=== PATIENT | male | born 1950 | race Hispanic/Latino ===

== ENCOUNTER 2024-02-14 18:26 | Emergency (ER) | payer MEDICARE, SELFPAY ==
[2024-02-14 18:28] VITALS: BP 141/80
[2024-02-14 19:00] VITALS: BP 130/82
[2024-02-14 19:09] VITALS: BMI 32.3
[2024-02-14 19:14] LABS: % Basophils 0.9 % (0-2); % Eosinophils 10.3 % (0-6); % Immature Granulocytes 0.3 % (0-0.5); % Lymphocytes 20.1 % (20.5-51.1); % Monocytes 13.1 % (1.7-9.3); % Neutrophils 55.3 % (42.2-75.2); Absolute Basophils 0.1 10^3/uL (0-0.2); Absolute Eosinophils 0.7 10^3/uL (0-0.7); Absolute Lymphocytes 1.4 10^3/uL (1.2-3.4); Absolute Monocytes 0.9 10^3/uL (0.1-0.6); Absolute Neutrophils 3.9 10^3/uL (1.4-6.5); Hematocrit 47.7 % (39.0-52.0); Hemoglobin 16.1 g/dL (13.0-18.0); Mean Corp Hgb Conc. 33.8 g/dL (33.0-37.0); Mean Corpuscular Hgb 33.1 pg (27.0-31.0); Mean Corpuscular Volume 98.1 fL (80.0-94.0); Mean Platelet Volume 10.5 fL (7.4-10.4); Nucleated Red Blood Cells % 0 % (-); Platelet Count 155 10^3/uL (130-400); Red Blood Cell Count 4.86 10^6/uL (4.70-6.10); Red Cell Dist. Width 12.6 % (11.5-14.5)
--- NOTE | 2024-02-14 19:48 | ED.GENMED ---
History of Present Illness
<Gala Solares MD, Resident - Last Filed: 02/14/24 21:19>
General
Chief Complaint: Abnormal Lab Value
Time Seen by Provider: 02/14/24 19:02
History of Present Illness
History of Present Illness:
73-year-old male with past medical history of HFrEF, diabetes, CAD, hypertension and a prior history of alcohol daily fusion presenting to the ED with abnormal outside lab results (high potassium). Patient does blood work for routine checkup. Denies
muscle weakness, nausea vomiting, urinary symptoms, chest pain, palpitation and any other symptoms. No new or changing medications.
Past History
<Gala Solares MD, Resident - Last Filed: 02/14/24 21:19>
Past History
ED Past Medical History: CAD, CHF, HTN, Hypercholesterolemia, NIDDM, SC and Other (Cardiomyopathy, PNA,)
ED Past Surgical History: Cardiac (Pacemaker/AICD, CABG, Stents)
Social History
Tobacco: Former smoker
Alcohol: Daily (Beer 3)
Personal:
Living: with family
Review of Systems
<Gala Solares MD, Resident - Last Filed: 02/14/24 21:19>
Review of Systems
Constitutional: Reports no symptoms
EENT: Reports no symptoms
Respiratory: Reports no symptoms
Cardiac: Reports no symptoms
ABD/GI: Reports no symptoms
: Reports no symptoms
Musculoskeletal: Reports no symptoms
Skin: Reports no symptoms
Neurological: Reports no symptoms
Endocrine: Reports no symptoms
Hematologic/Lymphatic: Reports no symptoms
Psychiatric: Reports no symptoms
Phy Exam
<Gala Solares MD, Resident - Last Filed: 02/14/24 21:19>
Physical Exam
Physical Exam:
GENERAL: Alert , in no apparent distress
EYE: pupils equal and reactive
NECK: Supple, no significant adenopathy.
ENT: o/p clr, mmm.
CARDIAC: Regular rate and rhythm .
LUNGS: Clear breath sounds bilaterally, no acute respiratory distress, no wheezes/rales/rhonchi
ABDOMEN: Soft, without focal tenderness, no r/g, no cvat
NEUROLOGICAL: Alert and oriented, no focal neuro deficits
SKIN: Warm and dry, skin intact.
MUSCULOSKELETAL: No edema, well perfused.
PSYCH: Normal and appropriate interaction.
Course
<Gala Solares MD, Resident - Last Filed: 02/14/24 21:19>
Orders/Labs/Results
Orders:
Orders
02/14/24 18:34
Electrocardiogram (*1) Urgent
Reason for Study: Chest Pain
EKG- Treatment ONCE
02/14/24 19:06
Complete Blood Count/With Diff Urgent
Comprehensive Metabolic Panel Urgent
Magnesium Urgent
02/14/24 20:33
Sodium Zirconium Cyclosilicate [Lokelma] 10 gram PO NOW STA
Abnormal Lab Results
02/14/24
19:06
MCV 98.1 H fL
(80.0-94.0)
MCH 33.1 H pg
(27.0-31.0)
MPV 10.5 H fL
(7.4-10.4)
Absolute Monos (auto) 0.9 H 10^3/uL
(0.1-0.6)
Lymphocytes % 20.1 L %
(20.5-51.1)
Monocytes % 13.1 H %
(1.7-9.3)
Eosinophils % 10.3 H %
(0-6)
Potassium 5.7 H mmol/L
(3.5-5.1)
Carbon Dioxide 21 L mmol/L
(22-30)
BUN 37 H mg/dl
(9-20)
Creatinine 1.4 H mg/dL
(0.7-1.3)
Glucose 170 H mg/dl
(70-99)
02/14/24 19:06
02/14/24 19:06
Vital Signs
Initial and Last Documented VS:
Initial Vital Signs
Temp Pulse Resp BP Pulse Ox
98.1 F 61 16 141/80 97
02/14/24 18:28 02/14/24 18:28 02/14/24 18:28 02/14/24 18:28 02/14/24 18:28
Last Documented Vital Signs
Temp Pulse Resp BP Pulse Ox
98.1 F 61 16 130/82 96
02/14/24 18:28 02/14/24 18:28 02/14/24 18:28 02/14/24 19:00 02/14/24 19:30
<Sonia Murray, DO - Last Filed: 02/14/24 21:03>
Orders/Labs/Results
Orders:
Orders
02/14/24 18:34
Electrocardiogram (*1) Urgent
Reason for Study: Chest Pain
EKG- Treatment ONCE
02/14/24 19:06
Complete Blood Count/With Diff Urgent
Comprehensive Metabolic Panel Urgent
Magnesium Urgent
02/14/24 20:33
Sodium Zirconium Cyclosilicate [Lokelma] 10 gram PO NOW STA
Abnormal Lab Results
02/14/24
19:06
MCV 98.1 H fL
(80.0-94.0)
MCH 33.1 H pg
(27.0-31.0)
MPV 10.5 H fL
(7.4-10.4)
Absolute Monos (auto) 0.9 H 10^3/uL
(0.1-0.6)
Lymphocytes % 20.1 L %
(20.5-51.1)
Monocytes % 13.1 H %
(1.7-9.3)
Eosinophils % 10.3 H %
(0-6)
Potassium 5.7 H mmol/L
(3.5-5.1)
Carbon Dioxide 21 L mmol/L
(22-30)
BUN 37 H mg/dl
(9-20)
Creatinine 1.4 H mg/dL
(0.7-1.3)
Glucose 170 H mg/dl
(70-99)
02/14/24 19:06
02/14/24 19:06
Vital Signs
Initial and Last Documented VS:
Initial Vital Signs
Temp Pulse Resp BP Pulse Ox
98.1 F 61 16 141/80 97
02/14/24 18:28 02/14/24 18:28 02/14/24 18:28 02/14/24 18:28 02/14/24 18:28
Last Documented Vital Signs
Temp Pulse Resp BP Pulse Ox
98.1 F 61 16 130/82 96
02/14/24 18:28 02/14/24 18:28 02/14/24 18:28 02/14/24 19:00 02/14/24 19:30
<Gala Solares MD, Resident - Last Filed: 02/14/24 21:19>
MDM/Problems Addressed
Differential Diagnosis Includes:
Hyperkalemia
MDM/Problems Addressed:
- EKG
- CBC, CMP
<aGla Solares MD, Resident - Last Filed: 02/14/24 21:19>
*Critical Care Note
Total Time (30-74mins, 75-104mins- exclusive of procedures): Not Applicable
ED Attending Note
<Gala Solares MD, Resident - Last Filed: 02/14/24 21:19>
-
Portions of this chart may have been created with voice recognition software.� Occasional wrong word or��sound alike� substitutions may have occurred due to the inherent limitations of voice recognition software.
<Sonia Murray DO - Last Filed: 02/14/24 21:03>
ED Attending Note
Patient seen and examined by attending physician: Yes
I performed the substantive portion of visit, reviewed & personally made and approve the management plan that is documented in note by myself or MARIA ELENA.: Yes
I performed a history and physical exam of patient and discussed management with resident, I reviewed resident's note and agree with documented findings and plan of care.: Yes
ED Attending Note:
73-year-old male with history of CHF, pericardial effusion, pacemaker presenting to the emergency department for high potassium. Patient had outpatient laboratory blood testing, was noted to have an elevated potassium, was called to his come to the
emergency department for further evaluation. Patient himself without any acute medical complaints. He denies any chest pain, difficulty breathing, abdominal pain. Does report in the past he had some difficulty breathing, was found to have a
pericardial effusion, however denies any respiratory symptoms at this time. He does report that he has been eating a lot of bananas as of recent, so is unsure whether that is contributing to his symptoms. Patient is also on spironolactone, however
has been on this medication for some time. Denies any swelling to his extremities, weak, numbness. Denies fever or sick contacts. Vital signs are normal.
On exam patient is very well-appearing, no acute distress or discomfort. EKG obtained, AV dual paced rhythm. No peaked T waves. Possible lab error given that patient is asymptomatic. Will repeat laboratory analysis and assess for any
intervention.
21:00 - Potassium is slightly elevated at 5.7, again no concerning EKG changes or concerning symptoms. Hyperkalemia could be secondary to patient's spironolactone versus increased intake of bananas. Do not feel patient requires admission at this
time, or any advanced workup. 1 dose of Lokelma given. Explained to patient that he will need to follow-up with his doctor in about a week for repeat testing of his potassium and kidney function. Patient in agreement with plan. He will also
abstain from eating bananas. Return precautions discussed and patient verbalized understanding
Discharge Plan
Departure
Patient Disposition: Home (Routine Discharge)
Date of Disposition: 02/14/24
Time of Disposition: 20:45
Patient with high blood pressure during this ER visit?: Yes
Discharge Problem:
Hyperkalemia
Instructions: Hyperkalemia (DC), BLOOD PRESSURE
Prescriptions:
No Action
atorvastatin [Lipitor] 80 MG tablet
80 mg PO QPM
carvedilol [Coreg] 25 MG tablet
25 mg PO BID
clonidine HCl 0.1 MG tablet
0.2 mg PO BID
glipizide 10 MG tablet
10 mg PO BID@1200,2000
aspirin 81 MG tablet,delayed release (DR/EC)
81 mg PO DAILY
pantoprazole 40 MG tablet,delayed release (DR/EC)
40 mg PO DAILY
metformin 1,000 MG tablet
1,000 mg PO BID@0800,1700
Farxiga 5 MG tablet
5 mg PO DAILY
magnesium oxide 400 MG tablet
400 mg PO DAILY
amlodipine [Norvasc] 10 mg Tablet
10 mg PO DAILY
nitroglycerin [Nitrostat] 0.4 mg Tablet, Sublingual
0.4 mg SUBLINGUAL Q5M PRN (Reason: chest pain)
valsartan 80 mg tablet
320 mg PO DAILY
clopidogrel 75 MG tablet
75 mg PO DAILY
acetaminophen [Tylenol] 325 mg Tablet
650 mg PO Q6HPRN PRN (Reason: MILD PAIN)
Referrals:
Dudley,Mattie O., DO [Family Provider] -
Activity Restrictions/Additional Instructions:
You were seen in the emergency department for elevated potassium
You were found to have a potassium of 5.7. You were given 1 dose of Lokelma to try and bring her potassium down. Your kidney function was also slightly elevated. You reported eating a lot of bananas as of recent. Please stop eating the bananas.
You will require repeat potassium and kidney function check in about 1 week with your primary care doctor. You are also on spironolactone, which be contributing to your high potassium. Please discuss with your primary care doctor regarding this
medication.
Return to the emergency department for any development of acute symptoms such as chest pain, difficulty breathing, abdominal pain with persistent vomiting and inability to tolerate food or liquid by mouth (concern for dehydration), weakness,
headache or confusion, fever greater than 100.4, or any additional symptoms that are concerning to you.
Thank you for choosing [facility].
Interventions
Interventions:
*Risk Screen - Suicide Last Done: 02/14/24 18:30
*General Assessment Last Done: 02/14/24 19:10
*Neglect/Abuse Screening Last Done: 02/14/24 18:30
ED- Fall Risk Assessment Last Done: 02/14/24 19:10
*ED COVID-19 Vaccine History Last Done: 02/14/24 19:10
*Nursing Disposition Last Done: 02/14/24 21:09
Discharge Date and Time
Discharge Date/Time: 02/14/24 21:10
Print Language: CONGOLESE
[2024-02-14 20:12] LABS: ALT (SGPT) 37 U/L (0-50); AST (SGOT) 33 U/L (17-59); Albumin 4.7 g/dl (3.5-5.0); Alkaline Phosphatase 66 U/L (38-126); Blood Urea Nitrogen 37 mg/dl (9-20); Calcium 9.3 mg/dl (8.4-10.2); Carbon Dioxide 21 mmol/L (22-30); Chloride 104 mmol/L (98-107); Estimated Creatinine Clearance 51 ml/min; Glucose 170 mg/dl (70-99); Magnesium 1.7 mg/dl (1.6-2.3); Potassium 5.7 mmol/L (3.5-5.1); Sodium 139 mmol/L (135-145); Total Bilirubin 0.5 mg/dl (0.2-1.3); Total Protein 8.1 g/dl (6.3-8.2); eGFR 53.07
[2024-02-14] MEDS: LOKELMA 10 GRAM PO (20:52)
== END 2024-02-14 21:10 | disposition home or self-care (01) ==
LOC: EMR 18:26
PROVIDERS: Emergency Medicine; EMERGENCY PHYSICIAN Student in an Organized Health Care Education/Training Program; FAMILY PHYSICIAN Family Medicine
DX: E87.5 Hyperkalemia (principal); I25.10 Atherosclerotic heart disease of native coronary artery without angina pectoris; I11.0 Hypertensive heart disease with heart failure; I50.22 Chronic systolic (congestive) heart failure; E78.00 Pure hypercholesterolemia, unspecified; E11.9 Type 2 diabetes mellitus without complications; I25.2 Old myocardial infarction; Z87.891 Personal history of nicotine dependence; Z95.5 Presence of coronary angioplasty implant and graft; Z95.810 Presence of automatic (implantable) cardiac defibrillator
CPT/HCPCS: 99284; 80053; 83735; 85025; 93005